=== PATIENT | male | born 1995 | race Caucasian/White ===

== ENCOUNTER 2017-06-21 21:49 | Emergency (ER) | payer OTHER ==
[~2017-06-21] VITALS: Ht 167.6 cm; Wt 65.8 kg
--- NOTE | 2017-06-21 21:51 | ED GENERAL ADULT ---
History of Present Illness General Chief Complaint: Upper Respiratory Sx/Fever Stated Complaint: BIBA FLUE SYMPTOMS Source: patient, EMS Exam Limitations: no limitations Vital Signs & Intake/Output Vital Signs & Intake/Output Vital Signs Date Time Temp Pulse Resp B/P B/P Pulse O2 O2 Flow FiO2 Mean Ox Delivery Rate 06/212 99.5 111 18 107/58 95 Room Air 06/21 2227 101.1 06/21 2211 Room Air 06/21 2150 101.1 133 18 130/75 95 Room Air Allergies Coded Allergies: No Known Allergies (06/21/17) Reconcile Medications Ibuprofen 600 MG TABLET 1 TAB PO TID PRN fever, pain with food Ondansetron (Zofran Odt) 4 MG TAB.RAPDIS 1 TAB SL TID PRN nausea Oseltamivir Phosphate (Tamiflu) 75 MG CAPSULE 1 CAP PO BID influenza Triage Nurses Notes Reviewed? yes Onset: Gradual Duration: day(s): Timing: recent history Injury Environment: home Severity: moderate Modifying Factors: Improves With: rest. Associated Symptoms: NAUSEA, VOMITING HPI: 21 YO gentleman presents with 3 days of cough, nausea, vomiting, without diarrhea. He notes, "Tonight, I woke up from sleep and just kept vomiting." He notes fevers, muscle aches, no flu vaccine this season. He is otherwise well. Past History Travel History Traveled to [place] past 21 day No Medical History Any Pertinent Medical History? see below for history Surgical History Surgical History: none Family History Hx Contributory? No Review of Systems Review of Systems Constitutional: Reports: no symptoms. EENTM: Reports: no symptoms. Respiratory: Reports: no symptoms. Cardiovascular: Reports: no symptoms. GI: Reports: no symptoms. Genitourinary: Reports: no symptoms. Musculoskeletal: Reports: no symptoms. Skin: Reports: no symptoms. Neurological/Psychological: Reports: no symptoms. Hematologic/Endocrine: Reports: no symptoms. Immunologic/Allergic: Reports: no symptoms. All Other Systems: Reviewed and Negative Physical Exam Physical Exam General Appearance: well developed/nourished, mild distress Head: atraumatic, normal appearance Eyes: Bilateral: normal appearance. Ears, Nose, Throat: normal pharynx, normal ENT inspection Neck: normal inspection, supple, full range of motion Respiratory: normal breath sounds, chest non-tender, no respiratory distress, quiet respiration, lungs clear Cardiovascular: regular rate/rhythm Gastrointestinal: normal bowel sounds, soft, non-tender, no organomegaly Back: normal inspection, normal range of motion Extremities: normal inspection, normal capillary refill, normal range of motion, no edema Neurologic/Psych: no motor/sensory deficits, awake, alert, oriented x 3 Skin: intact, normal color, warm/dry Core Measures ACS in differential dx? No CVA/TIA Diagnosis: No Sepsis Present: No Sepsis Focused Exam Completed? No Progress Differential Diagnoses I considered the following diagnoses in my evaluation of the patient: influenza, viral gastro vs other. Plan of Care: Orders Procedure Date/time Status RAPID VIRAL INFLUENZA A 06/21 2151 Complete LIPASE 06/21 2151 Complete HEPATIC FUNCTION PANEL 06/21 2151 Complete CBC WITHOUT DIFFERENTIAL 06/21 2151 Complete BASIC METABOLIC PANEL 06/21 2151 Complete AMYLASE 06/21 2151 Complete Laboratory Tests 06/21/172199: Anion Gap 14, Estimated GFR > 60, BUN/Creatinine Ratio 7.3, Glucose 116 H, Calcium 9.3, Total Bilirubin 0.8, Direct Bilirubin 0.2, AST 97 H, ALT 169 H, Alkaline Phosphatase 57, Total Protein 7.1, Albumin 4.3, Amylase 48, Lipase 45, CBC w Diff NO MAN DIFF REQ, RBC 4.90, MCV 89.9, MCH 30.1, MCHC 33.5, RDW 12.6, MPV 7.5, Gran % 90.4 H, Lymphocytes % 5.7 L, Monocytes % 3.8, Eosinophils % 0.1, Basophils % 0, Absolute Granulocytes 9.5 H, Absolute Lymphocytes 0.6 L, Absolute Monocytes 0.4, Absolute Eosinophils 0, Absolute Basophils 0 Microbiology 06/21 2199 NASOPHARYN: Influenza Virus A & B Rapid Smear - COMP INFLUENZA TYPE A Diagnostic Imaging: Viewed by Me: Radiology Read. Discussed w/RAD: Radiology Read. CXR Impression: PATIENT: CAIN CARRASCO PRESENT AGE: 21 PATIENT ACCOUNT NO: [id number] : 95 LOCATION: [facility] ORDERING PHYSICIAN: Osmel Brewer MD SERVICE DATE: 06/21/17 EXAM TYPE: RAD - XRY- PORTABLE CHEST XRAY EXAMINATION: XR PORTABLE CHEST CLINICAL INFORMATION: Fever, cough COMPARISON: None TECHNIQUE: Portable frontal view of the chest was obtained. FINDINGS: No significant abnormality is noted involving the heart, lungs, mediastinum, bony thorax or soft tissues. IMPRESSION: No acute cardiopulmonary process. 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 <Electronically signed in Other Vendor System> SIGNED BY: Julita Clement MD 06/21/172257 Initial ED EKG: none Departure Departure Disposition: HOME OR SELF CARE Condition: Stable Clinical Impression Primary Impression: Influenza Departure Forms: Customer Survey General Discharge Information Prescriptions: Current Visit Scripts Oseltamivir Phosphate (Tamiflu) 1 CAP PO BID #10 CAP Ondansetron (Zofran Odt) 1 TAB SL TID PRN nausea #10 TAB Ibuprofen 1 TAB PO TID PRN fever, pain #30 TAB with food Comments 06/21/17, 23:15...pt feeling better after iv fluids... rx for tamiflu... encouraged supportive medications. pt safe for discharge with close follow up advised. Critical Care Note Critical Care Note Critical Care Time: non-applicable
[2017-06-21 22:08] LABS: ABSOLUTE BASOPHIL COUNT 0 /CUMM (0.0-0.2); ABSOLUTE EOSINOPHIL COUNT 0 /CUMM (0.0-0.7); ABSOLUTE GRANULOCYTE CT 9.5 /CUMM (1.4-6.5); ABSOLUTE LYMPH COUNT 0.6 /CUMM (1.2-3.4); ABSOLUTE MONOCYTE COUNT 0.4 /CUMM (0.10-0.60); BASOPHIL % 0 % (0.0-2.0); EOSINOPHIL % 0.1 % (0-5); HEMATOCRIT 44.1 % (42-52); MEAN CORPUSCULAR HGB 30.1 PG (27.0-31.0); MEAN CORPUSCULAR HGB CONC 33.5 G/DL (33.0-37.0); MEAN CORPUSCULAR VOLUME 89.9 FL (80.0-94.0); MEAN PLATELET VOLUME 7.5 FL (7.4-10.4); PLATELET COUNT 325 /CUMM (130-400); RBC DISTRIBUTION WIDTH 12.6 % (11.5-14.5); WHITE BLOOD CELL COUNT 10.6 /CUMM (4.8-10.8)
[2017-06-21] MEDS ORDERED: ZOFRAN ODT4 M1 SL (22:31)
[2017-06-21] MEDS ORDERED: TAMIFLU75 M1 PO (22:31)
[2017-06-21 22:52] VITALS: BP 107/58
[2017-06-21 22:54] LABS: GRANULOCYTE % 90.4 % (42.2-75.2)
--- NOTE | 2017-06-21 22:58 | RADIOLOGY REPORT ---
EXAMINATION: XR PORTABLE CHEST CLINICAL INFORMATION: Fever, cough COMPARISON: None TECHNIQUE: Portable frontal view of the chest was obtained. FINDINGS: No significant abnormality is noted involving the heart, lungs, mediastinum, bony thorax or soft tissues. IMPRESSION: No acute cardiopulmonary process.
[2017-06-21] MEDS ORDERED: IBUPROFEN600 M1 PO (23:08)
== END 2017-06-21 23:28 ==
LOC: ERH 21:49
PROVIDERS: Pediatrics
DX: J11.1 Influenza due to unidentified influenza virus with other respiratory manifestations (principal)
CPT/HCPCS: 71045; 87804; 87804-59; 96361; 96374; 96375; J0131; J1885; J2405; J3101